=== PATIENT | female | born 1975 | race Caucasian/White ===

== ENCOUNTER 2017-05-31 11:04 | Emergency (ER) | END 2017-05-31 16:45 | disposition home or self-care (01) ==

== ENCOUNTER 2018-03-04 20:28 | Emergency (ER) | END 2018-03-04 22:28 | disposition home or self-care (01) ==

== ENCOUNTER 2018-09-02 04:41 | Emergency (ER) | payer SELFPAY ==
[~2018-09-02] VITALS: Ht 165.1 cm; Wt 110.5 kg
[~2018-09-02 04:41] MED LIST: BACL10TA PO; CEPH-443 PO; DOCU-144 PO; FER325 PO; HYDR-4011 PO; IBUP-1542 PO; IBUP-1561 PO; ONDA4TAB8 PO; POLY17PO6 PO
[2018-09-02 04:50] VITALS: Ht 165.1 cm; Wt 110.5 kg
[2018-09-02] MEDS ORDERED: BEN25 PO (07:04)
[2018-09-02] MEDS ORDERED: PRED20TA PO (07:04)
[2018-09-02] MEDS ORDERED: DIPHENHYDRAMINE 25 MG CAP PO ONE (07:30)
[2018-09-02] MEDS ORDERED: DEXAMETHASONE 10 MG/ML 1 ML INJ IM ONE (07:30)
[2018-09-02 07:35] VITALS: BP 156/89; PULSE 69; RESP 19
--- NOTE | 2018-09-02 08:32 | ERD ---
ER Documentation Chief Complaint Chief Complaint C/O DIARRHEA W/ AP AND FACE SWELLING AFTER EATING PORK HPI 43-year-old female presenting with facial swelling after eating pork last night. She denies any trouble swallowing or shortness of breath. Denies any rashes. She states this is never happened before and has not taken medications for her symptoms. Denies vomiting. Has generalized abdominal pain. Denies change in urination or bowel move. Denies fevers. States her eyes are very itchy. Denies medical problems. NKDA. Surgical history . Social history denies. Patient denies any new use of medications. ROS All systems reviewed and are negative except as per history of present illness. Medications Home Meds Active Scripts Prednisone* (Prednisone*) 20 Mg Tab, 40 MG PO DAILY for 4 Days, TAB Prov:BOUCHRA WILSON PA-C 09/02/18 Diphenhydramine Hcl* (Benadryl*) 25 Mg Cap, 25 MG PO Q6, #30 CAP Prov:BOUHCRA WILSON PA-C 09/02/18 Ibuprofen* (Motrin*) 400 Mg Tab, 400 MG PO Q8, #15 TAB Prov:NOAH STALLWORTH MD 03/04/18 Baclofen* (Baclofen*) 10 Mg Tablet, 10 MG PO TID for 5 Days, #15 TAB Prov:NOAH STALLWORTH MD 03/04/18 Cephalexin* (Keflex*) 500 Mg Capsule, 500 MG PO TID for 7 Days, CAP Prov:NOAH STALLWORTH MD 03/04/18 Ibuprofen* (Motrin*) 600 Mg Tab, 600 MG PO Q6, #30 TAB Prov:JENNA PARHAM PA-C 05/31/17 Ondansetron Hcl* (Zofran*) 4 Mg Tablet, 4 MG PO Q6H for NAUSEA AND/OR VOMITING, #30 TAB Prov:JENNA PARHAM PA-C 05/31/17 Polyethylene Glycol* (Miralax*) 17 Gm Powd.pack, 17 GM PO DAILY, #15 Prov:JENNA PARHAM PA-C 05/31/17 Docusate Sodium* (Colace*) 100 Mg Capsule, 100 MG PO TID, #30 CAP Prov:PROUSE,JENNA M. PA-C 05/31/17 Ferrous Sulfate* (Ferrous Sulfate*) 325 Mg Tabec, 325 MG PO BID, #30 TAB Prov:PRASADJENNA Le PA-C 05/31/17 Hydrocodone/Acetaminophen ([place] 5-325 Tablet) 1 Each Tablet, 1 TAB PO Q6H PRN for PAIN, #10 TAB Prov:JENNA PARHAM PA-C 05/31/17 Allergies Allergies: Coded Allergies: No Known Allergy (Unverified , 05/31/17) PMhx/Soc History of Surgery: Yes (CS x2) Anesthesia Reaction: No Hx Neurological Disorder: No Hx Respiratory Disorders: No Hx Cardiac Disorders: No Hx Psychiatric Problems: No Hx Miscellaneous Medical Probl: Yes (Herpes, Cirrhosis) Hx Alcohol Use: No Hx Substance Use: No Hx Tobacco Use: No Smoking Status: Never smoker FmHx Family History: No diabetes, No coronary disease, No other Physical Exam Vitals Vital Signs Date Temp Pulse Resp B/P (MAP) Pulse Ox O2 O2 Flow FiO2 Time Delivery Rate 09/02/18 98.2 69 19 156/89 98 Room Air 07:35 (111) 09/02/18 97.5 86 19 176/97 97 04:50 (123) Physical Exam GENERAL: The patient is well-appearing, well-nourished, in no acute distress HEENT: Atraumatic. Conjunctivae are pink. Pupils equal, round, and reactive to light. There is no scleral icterus. Tympanic membranes clear bilaterally. Oropharynx clear. CHEST: Clear to auscultation bilaterally. There are no rales, wheezes or rhonchi. HEART: Regular rate and rhythm. No murmurs, clicks, rubs or gallops. No S3 or S4. ABDOMEN:Soft, nontender and nondistended. Good bowel sounds. No rebound or guarding. No gross peritonitis. No gross organomegaly or masses. SKIN: There is no apparent rash or petechiae. The skin is warm and dry. Mild swelling noted of the lips and around the eyes. No erythema no urticaria Results 24 hrs Current Medications Medications Dose Sig/Tyler Start Time Status Last (Trade) Ordered Route PRN Stop Time Admin Dose Reason Admin 25 mg ONCE ONCE 09/02/18 DC 09/02/18 Diphenhydrami PO 07:30 07:28 ne HCl 09/02/18 07:31 (Benadryl) 10 mg ONCE ONCE 09/02/18 DC 09/02/18 Dexamethasone IM 07:30 07:28 (Decadron) 09/02/18 07:31 Procedures/MDM ER course: Decadron and Benadryl given ED. MDM: 43-year-old female presenting with swelling of the face. I consider possible angioedema associated with new medications however patient denies any new medications. I have low suspicion for anaphylaxis. I have low suspicion for aspiratory distress or hypoxia. Patient is discharged with strict ER precautions and supportive medications. Patient is told if symptoms change or worsen to immediately return to the ER. All questions answered at discharge Departure Diagnosis: Primary Impression: Facial swelling Condition: Stable Patient Instructions: Angioedema Referrals: [facility] YOU HAVE RECEIVED A MEDICAL SCREENING EXAM AND THE RESULTS INDICATE THAT YOU DO NOT HAVE A CONDITION THAT REQUIRES URGENT TREATMENT IN THE EMERGENCY DEPARTMENT. FURTHER EVALUATION AND TREATMENT OF YOUR CONDITION CAN WAIT UNTIL YOU ARE SEEN IN YOUR DOCTORS OFFICE WITHIN THE NEXT 1-2 DAYS. IT IS YOUR RESPONSIBILITY TO MA KE AN APPOINTMENT FOR FOLOW-UP CARE. IF YOU HAVE A PRIMARY DOCTOR --you should call your primary doctor and schedule an appointment IF YOU DO NOT HAVE A PRIMARY DOCTOR YOU CAN CALL OUR PHYSICIAN REFERRAL HOTLINE AT IF YOU CAN NOT AFFORD TO SEE A PHYSICIAN YOU CAN CHOSE FROM THE FOLLOWING [facility] [address] [facility]. [facility] [address] [facility] [facility] [address]. [facility] [address] [facility] [facility] [address] [facility]. [facility]. [address] Additional Instructions: FOLLOW UP WITH YOUR PRIMARY CARE PHYSICIAN TOMORROW.Return to this facility if you are not improving as expected. BOUCHRA WILSON PA-C Sep 02, 2018 08:32
== END 2018-09-02 08:05 | disposition home or self-care (01) ==
LOC: FTE 04:41
DX: R22.0 Localized swelling, mass and lump, head (principal)
CPT/HCPCS: 96372; 99284; J1100